=== PATIENT | male | born 1980 | race Caucasian/White ===

== ENCOUNTER 2017-10-29 10:49 | Emergency (ER) | payer SELFPAY ==
[~2017-10-29] VITALS: Ht 188 cm; Wt 88.5 kg
[~2017-10-29 10:49] MED LIST: IBUP800T23 PO; ROBA750T3 PO; TRAM50 PO
[2017-10-29 10:57] VITALS: BP 113/70; PULSE 104; RESP 20; TEMP 99.1; O2SAT 98
[2017-10-29] MEDS ORDERED: ORPHENADRINE INJ 60 MG/2 ML AMP IM ONE (11:30)
[2017-10-29] MEDS ORDERED: KETOROLAC TROMETHAMINE 60 MG/2 ML (IM) VIAL IM ONE (11:30)
[2017-10-29] MEDS ORDERED: ROBA500T PO (11:35)
[2017-10-29] MEDS ORDERED: IBUP1TAB7 PO (11:35)
--- NOTE | 2017-10-29 11:35 | PD ---
HPI Chief Complaint: Back/ Neck Pain or Injury Time Seen by Provider: 11:19 Travel History International Travel<30 days: No Contact w/Intl Traveler<30days: No Traveled to known affect area: No History of Present Illness HPI 36-year-old male presents to the emergency Department with complaint of mid back pain after stepping in a hole with his right leg and twisting his back today. He arrived via EMS and they did apply a cervical collar. The patient removed the cervical collar prior to my examination and said he doesn't have neck pain. Denies paresthesias, loss of sensation, decreased range of motion, decreased strength to all extremities. Denies fever, vomiting. Denies IV drug use or cancer; reports history of IV drug use years ago and is adamant when risks explained. Denies encopresis, incontinence, saddle in his chest. Reports some abrasions to his right leg from stepping in a hole. Unknown tetanus status. Declines tetanus update at this time. Denies significant past medical history. Has not taken any medications or drainage from his to alleviate symptoms. Rates pain 8/10. Describes the pain as a stabbing sensation. Worse with movement. Better at rest. No known allergies. Has no medical complaints. No other modifying factors or associated signs and symptoms. PFSH Past Medical History Blood Disorders: No Cancer: No Cardiovascular Problems: No Diabetes: No Diminished Hearing: No Endocrine: No Gastrointestinal Disorders: No Genitourinary: No Immune Disorder: No Implanted Vascular Access Dvce: No Medical other: Yes (JAW FRACTURE ) Musculoskeletal: Yes (CHRONIC BACK PAIN "BULGING DISCS") Neurologic: No Psychiatric: No Reproductive: No Respiratory: No Immunizations Current: No Tetanus Vaccination: < 5 Years Influenza Vaccination: No Past Surgical History Abdominal Surgery: No Cardiac Surgery: No Ear Surgery: No Eye Surgery: No Genitourinary Surgery: No Gynecologic Surgery: No Neurologic Surgery: No Oral Surgery: Yes (R JAW FX,WIRED TOGETHER FOR 12 WEEKS.) Thoracic Surgery: No Other Surgery: Yes (I+D LAC FOR SPIDER BITE 2MTHS AGO,JAW WIRED SHUT 2005) Social History Alcohol Use: No Tobacco Use: Yes (/2 PPD) Substance Use: No Allergies-Medications (Allergen,Severity, Reaction): Coded Allergies: No Known Allergies (Verified Adverse Reaction, Unknown, 10/29/17) Reported Meds & Prescriptions Reported Meds & Active Scripts Active Robaxin (Methocarbamol) 500 Mg Tab 500 Mg PO QID PRN Ibuprofen 800 Mg Tab 800 Mg PO Q6HR PRN Review of Systems Except as stated in HPI: all other systems reviewed are Neg Physical Exam Narrative GENERAL: Well-nourished, well-developed male patient, in no acute distress; afebrile, nontoxic-appearing SKIN: Warm and dry. Abrasions noted to right lower leg. HEAD: Atraumatic. Normocephalic. EYES: Pupils equal and round. No scleral icterus. No injection or drainage. ENT: Mucosa pink and moist. Airway patent. NECK: Moving freely. Trachea midline. No midline tenderness on palpation of the cervical spine. Active rotation of the neck greater than 45 to the right and left. CARDIOVASCULAR: Regular rate. RESPIRATORY: No accessory muscle use. GASTROINTESTINAL: Flat. MUSCULOSKELETAL: Bilateral lower extremities supple and non-tense with 2+ pedal pulses and sensory intact; with full range of motion and 5/5 strength. Active dorsiflexion and extension of bilateral feet. Bilateral straight leg raise is positive for mid back pain. Ambulatory in room with guarded gait. Sitting up in bed at 90. No obvious deformities. No clubbing. No cyanosis. No edema. BACK: Midline point tenderness on palpation of the thoracic spine; no midline tenderness on palpation of the lumbar spine. Tenderness on palpation of the bilateral paraspinal musculature of the thoracic area. No obvious deformities. NEUROLOGICAL: Awake and alert. Oriented 3. No obvious cranial nerve deficits. Motor grossly within normal limits. Normal speech. Moves all extremities. 5/5 strength to all extremities. Sensory intact. PSYCHIATRIC: Appropriate mood and affect; insight and judgment normal. Data Data Last Documented VS Vital Signs Date Time Temp Pulse Resp B/P (MAP) Pulse Ox O2 Delivery O2 Flow Rate FiO2 10/29/17 10:57 99.1 104 20 113/70 (84) 98 Room Air Orders Orders Spine, Thoracic-Ap/Lat/Sw(3vw) (10/29/17 11:25) Ketorolac Inj (Toradol Inj) (10/29/17 11:30) Orphenadrine Inj (Norflex Inj) (10/29/17 11:30) MDM Medical Decision Making Medical Screen Exam Complete: Yes Emergency Medical Condition: Yes Medical Record Reviewed: Yes Differential Diagnosis Thoracic back strain, muscle spasms, muscle strain of back, back strain Narrative Course 36-year-old male with thoracic back injury after stepping in a hole in his back. Patient has midline tenderness on palpation of the thoracic spine. He is ambulatory in the room with a guarded gait. Denies current IV drug use or cancer. Denies encopresis, incontinence, saddle anesthesias. Denies fevers, vomiting. Patient declines tetanus update. Thoracic spine x-rays ordered. Toradol and Norflex ordered. 1226: Thoracic spine x-ray concludes: Unremarkable examination of the thoracic spine. Discussed findings with the patient. Robaxin and ibuprofen prescribed for home. Instructed patient to follow up with primary care provider. Patient verbalizes understanding and agreement with treatment plan. Patient is medically cleared and stable for discharge. Discussed reasons to return to the emergency department. Patient agrees with treatment plan. The patients vital signs are stable and the patient is stable for outpatient follow- up and treatment. Patient discharged home, stable and in no acute distress. Diagnosis Primary Impression: Thoracic back sprain Qualified Codes: S23.9XXA - Sprain of unspecified parts of thorax, initial encounter Referrals: [facility] Primary Care Physician Patient Instructions: General Instructions, Thoracic Back Strain (ED) Departure Forms: Tests/Procedures, Work Release Enter return to work date: Nov 01, 2017 Additional Instructions: Tylenol or ibuprofen as directed and as needed for pain Robaxin as prescribed and as needed for muscle spasms Heating pad and/or ice to affected area to reduce pain Avoid aggravating activities; increase activity as tolerated Follow-up with primary care provider Return to emergency department immediately with worsening of symptoms Med/Other Pt SpecificInfo: Prescription(s) given Scripts Methocarbamol (Robaxin) 500 Mg Tab 500 MG PO QID Y for MUSCLE SPASM, #30 TAB 0 Refills Prov: Janet Messina 10/29/17 Ibuprofen (Ibuprofen) 800 Mg Tab 800 MG PO Q6HR Y for PAIN, #30 TAB 0 Refills Prov: Janet Messina 10/29/17 Disposition: 01 DISCHARGE HOME Condition: Stable Janet Messina Oct 29, 2017 11:35
--- NOTE | 2017-10-29 12:18 | RADRPT ---
EXAM DATE/TIME: 10/29/2017 12:04 [facility] COMPARISON: No previous studies available for comparison. INDICATIONS : Back pain, fall. MEDICAL HISTORY : None. SURGICAL HISTORY : None. ENCOUNTER: Initial ACUITY: 1 day PAIN SCORE: 8/10 LOCATION: middle back FINDINGS: There is normal alignment of the thoracic vertebral bodies. Vertebral body height is maintained. No evidence of fracture or subluxation. Pedicles are intact at all levels. The paravertebral reflecti ons are not thickened. CONCLUSION: Unremarkable examination of the thoracic spine. Ed Monte MD on October 29, 2017 at 12:16 Board Certified Radiologist. This report was verified electronically.
[2017-10-29 13:16] VITALS: BP 130/70
== END 2017-10-29 13:18 | disposition home or self-care (01) ==
LOC: NEPD 10:49
DX: S23.9XXA Sprain of unspecified parts of thorax, initial encounter (principal); F17.200 Nicotine dependence, unspecified, uncomplicated; W17.2XXA Fall into hole, initial encounter; X50.1XXA Overexertion from prolonged static or awkward postures, initial encounter
CPT/HCPCS: 72072; 96372; 99284; J1885; J2360

== ENCOUNTER 2017-12-13 20:57 | Emergency (ER) | payer SELFPAY ==
[2017-12-13] MEDS: ONDANSETRON ODT 4 MG TAB PO (21:11)
== END 2017-12-14 02:06 | disposition home or self-care (01) ==
LOC: NEPE 12-14 02:06
DX: T40.1X1A Poisoning by heroin, accidental (unintentional), initial encounter (principal); F17.200 Nicotine dependence, unspecified, uncomplicated; R11.10 Vomiting, unspecified
CPT/HCPCS: 93005; 99283